=== PATIENT | female | born 1975 | race Caucasian/White ===

== ENCOUNTER 2016-11-18 19:24 | Emergency (ER) | payer MEDICAID, SELFPAY ==
[2016-11-18 19:24] VITALS: BP 159/111; PULSE 100; RESP 19; TEMP 36.6; O2SAT 98; BMI 38.6
--- NOTE | 2016-11-18 19:39 | EKG12_ITS ---
Test Reason : SOB Blood Pressure : / mmHG Vent. Rate : 101 BPM Atrial Rate : 101 BPM P-R Int : 146 ms QRS Dur : 088 ms QT Int : 362 ms P-R-T Axes : 023 031 -17 degrees QTc Int : 469 ms Sinus tachycardia Inferior infarct , age undetermined Abnormal ECG Confirmed by RASHMI LINCOLN, KIM ([id number]), scientific editor JAZZY MINOR ([id number] on 11/22/2016 2:06:04 PM Referred By: RU Confirmed By:KIM CARABALLO MD
--- NOTE | 2016-11-18 19:39 | RAD_ITS ---
STUDY: X-RAY CHEST REASON FOR EXAM: Female, 41 years old. Shortness of breath TECHNIQUE: Frontal and lateral views of the chest. COMPARISON: None. FINDINGS: The lungs are under aerated. There is no focal airspace disease. There is no demonstrated pleural abnormality. Normal size heart. Normal mediastinum and oleg. Normal visualized pulmonary arteries. Normal visualized aortic arch and descending thoracic aorta. There are diffuse degenerative changes of the visualized thoracic spine. Normal visualized ribs, clavicles, and shoulders. There is no demonstrated abnormality of the visualized soft tissue structures of the upper abdomen. RAD/Chest PA and Lateral IMPRESSION: No acute cardiopulmonary abnormalities. Electronically Signed: Mary Conrad MD at 21:10 EDT Tel [phone], Service support ,
--- NOTE | 2016-11-18 19:40 | ED.RN ---
RN CALLED FOR EKG, PULLED OLD EKG'S FOR
[2016-11-18] MEDS: Ipratropium/Albuterol Sulfate 3 ML AMPUL.NEB INHALATION (19:49)
[2016-11-18] MEDS: Albuterol 2.5 MG/3 ML VIAL.NEB. INHALATION ×2 (19:49→20:01)
[2016-11-18 19:50] VITALS: PULSE 115; RESP 19
[2016-11-18 20:02] VITALS: PULSE 110; RESP 18
[2016-11-18 20:09] LABS: Absolute Neutrophil Count 9.6 X10^3/uL (2.0-7.7); Basophil# 0.03 X10^3/uL; Basophil% 0.2 % (0-1); Eosinophil# 0.89 X10^3/uL; Hematocrit 42.6 % (37-47); Hemoglobin 13.5 g/dl (12.0-15.0); Lymphocyte % 24.1 % (19-41); Mean Corp Hgb Conc 31.7 g/gl (32-36); Mean Corpuscular Hgb 25.1 pg (27.0-32.0); Mean Corpuscular Volume 79.2 fL (81-99); Mean Platelet Vol. 9.1 fl (6.2-12.0); Monocyte# 0.77 X10^3/uL; Monocyte% 5.2 % (0-10); Neutrophil % 64.3 % (47-70); Platelet Count 394 K/mm3 (150-450); RBC Distribution Width CV 14.6 % (11.6-14.6); RBC Distribution Width SD 41.3 fl (35.1-43.9); Red Blood Count 5.38 M/mm3 (4.2-5.4); White Blood Count 14.9 K/mm3 (4.4-11.0)
[2016-11-18] MEDS: MethylPREDNISolone 125 MG/2 ML Vial IV (20:09)
[2016-11-18] MEDS: 0.9% Normal Saline 1,000 ML 150 ML IV (20:09)
[2016-11-18 20:14] LABS: POSITIVE COUNT NO; POSITIVE DIFFERENTIAL NO; POSITIVE MORPHOLOGY NO
[2016-11-18 20:52] LABS: Anion Gap 8 (5-15); BUN 15 mg/dL (7-18); BUN/Creat Ratio 16.4 RATIO (10-20); Calcium,Total 8.5 mg/dL (8.5-10.1); Chloride 100 mmol/L (98-107); Creatinine, Serum 0.92 mg/dL (0.55-1.02); EST Glomerular Filtration Rate 71 mL/min (>60); Est Glom Filt Rate - Afr Amer 86 mL/min (>60); Estimated Creatinine Clearance 56.63 ml/min; Glucose 114 mg/dL (70-110); Potassium 3.5 mmol/L (3.5-5.1); Sodium Level 139 mmol/L (136-145)
[2016-11-18 21:04] VITALS: BP 119/70; PULSE 97; RESP 19; O2SAT 95
--- NOTE | 2016-11-18 21:18 | ED.VISSUMM ---
- ER Visit Summary Date of Service: 11/18/16 Chief Complaint: Shortness of breath/cough History of Present Illness: The patient is a 41 F reports shortness of breath and cough for the last 1 month since moving into a new house. Does report there was some mold found in the new house. Patient was seen at urgent care last week. She was given albuterol, prednisone, and a Z-Eloy. Patient states her symptoms did improve for a while, but worsened again over the past 2 days since completing the steroids and antibiotics. She denies any fever. She does report cough with white sputum. She has mild chest tightness and pain into her back, she believes from coughing. Patient has a history of reflux disease, hypertension, high cholesterol, and anxiety. Physical Examination: Blood pressure is 159/111, temperature 97.8, heart rate 100, respiratory rate 19, pulse ox 98% on room air. Patient sitting upright in bed. She is in no acute distress but does have frequent cough. Head neck examination is grossly unremarkable. Heart is regular rate and rhythm. Lung sounds with expiratory wheezes throughout. Abdomen is soft and nontender. Lower external examination was no calf tenderness or edema. Test Results: EKG is sinus at [address] change. This is unchanged compared to prior study of April 2006. CBC was a white count of 14.9 with normal differential. She was recently on steroids. Chemistry studies normal. Troponin is less than 0.02. Two-view chest x-ray shows no acute abnormalities. Emergency Department Course and Treatment: Patient was treated aerosols and IV Solu-Medrol. On repeat evaluations she has increased air movement throughout and feels improved. She will be given a prednisone taper. She will be given a prescription for new albuterol inhaler if she needs it. Treatment Plan: [] Disposition: Discharge Impression: Bronchospasm This note was generated with [employer] dictation software. It may contain incorrect words, spelling, and punctuation that were not noted in review of the chart prior to signing. ED Disposition - Plan for ED Patient: Chief Complaint: Shortness of Breath Referrals: Araseli Trivedi [Primary Care Provider] -
--- NOTE | 2016-11-18 21:22 | ED.DEP ---
ED Disposition - Plan for ED Patient: Disposition: Home or Assisted Living Chief Complaint: Shortness of Breath Instructions: ED Wheezing Prescriptions: Albuterol Inhaler [Ventolin Hfa] 1 - 2 puff INHALATION Q4H PRN PRN #1 inhaler PRN Reason: Wheezing Prednisone 10 mg PO UD #33 tablet Referrals: Araseli Trivedi [Primary Care Provider] - 1 Week
[2016-11-18 21:31] VITALS: BP 125/80; PULSE 93; RESP 17; O2SAT 95
== END 2016-11-18 21:37 | disposition home or self-care (01) ==
PROVIDERS: Emergency Provider Emergency Medicine; Family Provider Nurse Practitioner; PCP Nurse Practitioner
DX: J98.01 Acute bronchospasm (principal); K21.9 Gastro-esophageal reflux disease without esophagitis; I10 Essential (primary) hypertension; E78.00 Pure hypercholesterolemia, unspecified; Z79.51 Long term (current) use of inhaled steroids; Z79.899 Other long term (current) drug therapy
CPT/HCPCS: 71020; 80048; 84484; 85025; 93005; 94640 ×2; 96361; 96374; 99285; J7030; A4216

== ENCOUNTER 2017-05-21 12:57 | Emergency (ER) | payer OTHER, SELFPAY ==
[2017-05-21 12:58] VITALS: BP 159/103; PULSE 52; RESP 16; TEMP 37.5; O2SAT 99; BMI 38.0
--- NOTE | 2017-05-21 13:21 | RAD_ITS ---
STUDY: X-RAY - RIGHT HAND REASON FOR EXAM: Female, 41 years old. Pain. Status post fall. TECHNIQUE: 3 view(s) of the hand. COMPARISON: None. FINDINGS: Normal radiocarpal articulation. Normal distal radioulnar joint. Normal visualized carpal bones. Normal carpal articulations Normal carpometacarpal articulation of the thumb. Normal second through fifth carpometacarpal joints. Normal metacarpi. Normal metacarpophalangeal joint of the thumb. Normal interphalangeal joint of the thumb. Normal proximal and distal phalanges of the thumb. Normal metacarpophalangeal joints of the second through fifth fingers. Normal proximal and distal interphalangeal joints of the second through fifth fingers. Normal phalanges of the second through fifth fingers. The soft tissue structures are unremarkable. RAD/Hand Min 3 Views IMPRESSION: Normal x-ray examination of the hand. Electronically Signed: Rashid Alanis MD at 14:55 EDT Tel , Service support ,
[2017-05-21] MEDS: oxyCODONE 5 MG Tablet PO (14:03)
--- NOTE | 2017-05-21 15:14 | ED.VISSUMM ---
- ER Visit Summary Date of Service: 05/21/17 Chief Complaint: Right hand injury History of Present Illness: The patient is a 41 F who fell going up some steps today injuring her right hand. She denies any other injury from the fall. She is right-hand dominant. Physical Examination: Vital signs are significant for blood pressure 159/103, otherwise unremarkable. Head neck examination is unremarkable. Heart is regular rate and rhythm. Lung sounds are clear. Right upper extremity examination reveals tenderness with edema and mild erythema over the fifth metacarpal of the right hand. She is able to wiggle fingers. She has normal cap refill. There is no tenderness palpation at the wrist or elbow. Test Results: Right hand x-rays are unremarkable. Emergency Department Course and Treatment: Patient was given 1 tab of oxycodone here. She had already taken Tylenol. Patient was placed in an Josue wrap. She is instructed to use Tylenol or ibuprofen at home. Treatment Plan: [] Disposition: Discharge Impression: Mechanical fall with right hand contusion This note was generated with [employer] dictation software. It may contain incorrect words, spelling, and punctuation that were not noted in review of the chart prior to signing ED Disposition - Plan for ED Patient: Disposition: Home or Assisted Living Chief Complaint: Upper Extremity Injury Instructions: ED Contusion Hand Referrals: Rashard Fritz MD [Primary Care Provider] - 1 Week if not improving
[2017-05-21 15:23] VITALS: BP 127/89; PULSE 68; RESP 14; O2SAT 94
== END 2017-05-21 15:24 | disposition home or self-care (01) ==
PROVIDERS: Emergency Provider Emergency Medicine; Family Provider Family Medicine; PCP Family Medicine
DX: S60.221A Contusion of right hand, initial encounter (principal); I10 Essential (primary) hypertension; E78.00 Pure hypercholesterolemia, unspecified; F41.9 Anxiety disorder, unspecified; Z79.51 Long term (current) use of inhaled steroids; Z79.899 Other long term (current) drug therapy; W10.9XXA Fall (on) (from) unspecified stairs and steps, initial encounter; Y93.01 Activity, walking, marching and hiking; Y92.89 Other specified places as the place of occurrence of the external cause; Y99.8 Other external cause status
CPT/HCPCS: 73130; 99283

== ENCOUNTER 2017-09-02 22:01 | Emergency (ER) | payer OTHER, SELFPAY ==
[2017-09-02 22:02] VITALS: BP 155/95; PULSE 77; RESP 16; TEMP 37.3; O2SAT 97; BMI 24.4
[2017-09-02 22:10] VITALS: BP 148/70; PULSE 80; RESP 14; O2SAT 98
--- NOTE | 2017-09-02 22:28 | RAD_ITS ---
STUDY: X-RAY - RIGHT ANKLE REASON FOR EXAM: Female, 42 years old. Injury and pain TECHNIQUE: Three view(s) of the ankle were obtained. COMPARISON: None. FINDINGS: Bones: There are no acute osseous abnormalities. There is a moderate spur off the inferior calcaneus. There is a small spur off the superior talus. Joints: There are moderate degenerative changes at the first TMT joint. Soft tissues: There is moderate soft tissue swelling, laterally more than medially. RAD/Ankle min 3 Views IMPRESSION: No acute fractures are seen. Electronically Signed: Mary Conrad MD at 23:07 EDT Tel Direct: [phone], Service support ,
[2017-09-02] MEDS: oxyCODONE 5 MG Tablet 10 MG PO (22:54)
[2017-09-02] MEDS: Ondansetron ODT 4 MG Tablet PO (22:55)
--- NOTE | 2017-09-02 23:16 | ED.VISSUMM ---
- ER Visit Summary Date of Service: 09/02/17 Chief Complaint: Right ankle pain History of Present Illness: The patient is a [address] Fritz. She reports that yesterday she was jumping around and she either twisted or landed on her right ankle wrong. She states I might have rolled it. She reports that she has had increased pain today. She reports it is an aching constant pain and 7 out of 10 severity. It is sharp pain is 10 out of 10 with walking. She taken ibuprofen without relief. She does report she has paresthesias in her toes. She reports that she did not fall. She has no other injuries or complaints. Physical Examination: Vitals: Stable. Afebrile. General: Well-nourished and well-developed. Head: Normocephalic atraumatic. Neck: Supple, no lymphadenopathy. No JVD. Nontender. Cardiovascular: Regular rate and rhythm. No murmurs. Respiratory: No respiratory distress. Clear to auscultation bilaterally. Abdominal: Soft, nontender, nondistended, normal bowel sounds. No guarding, rebound, or peritoneal signs. Back: Nontender. Extremities: Soft tissue swelling and moderate tenderness palpation both the medial lateral malleoli. Her Achilles tendon is intact. She has a normal Sánchez test. She has less than 2 second capillary refill distal to this. Skin: Normal color, no rash. Neurologic: Alert and oriented ?3. Cranial nerves II through XII are intact. Normal strength and sensation. Psych: Normal affect. Test Results: X-ray shows soft tissue swelling but no fracture. Emergency Department Course and Treatment: Patient was treated with Zofran and oxycodone. She is placed in a walking boot. Treatment Plan: Patient be discharged instructions follow-up Dr. Alas in 1 week if not improving. She will be placed on Percocet and naproxen for pain. Disposition: To home in improved and stable condition. Impression: 1. Right ankle sprain. This note was generated with [employer] dictation software. It may contain incorrect words, spelling, and punctuation that were not noted in review of the chart prior to signing ED Disposition - Plan for ED Patient: Disposition: Home or Assisted Living Chief Complaint: Lower Extremity Injury Instructions: ED Sprain Ankle W X Ray Prescriptions: Oxycodone HCl/Acetaminophen [Percocet 5/325] 1 tablet PO Q6H PRN PRN 3 Days #12 tablet PRN Reason: Pain Naproxen [Naprosyn] 500 mg PO BID #14 tablet Referrals: Malachi Alas DPM [STAFF PHYSICIAN] - 1 Week if not improving
== END 2017-09-02 23:47 | disposition home or self-care (01) ==
PROVIDERS: Emergency Provider Emergency Medicine; Family Provider Family Medicine; PCP Family Medicine
DX: S93.401A Sprain of unspecified ligament of right ankle, initial encounter (principal); X50.0XXA Overexertion from strenuous movement or load, initial encounter; Y93.39 Activity, other involving climbing, rappelling and jumping off; Y92.89 Other specified places as the place of occurrence of the external cause; Y99.8 Other external cause status
CPT/HCPCS: 73610; 99283

== ENCOUNTER → 2017-12-16 16:12 | Outpatient (CLI) | payer OTHER, SELFPAY ==
--- NOTE | 2017-12-16 16:45 | MRI_ITS ---
STUDY: MRI RIGHT ANKLE WITHOUT CONTRAST REASON FOR EXAM: Female, 42 years old. Osteoarthritis. Pain. Instability. TECHNIQUE: Standardized fat and water weighted pulse sequences were obtained in all 3 orthogonal planes. COMPARISON: X-ray September 02, 2017. FINDINGS: Normal subcutis adipose space. Normal posterior tibialis tendon. There is accessory navicular Incorporated into the distal posterior tibial tendon. Normal flexor digitorum longus tendon. Normal flexor hallucis longus tendon. Normal peroneus longus and brevis tendons. Normal tibialis anterior tendon. Normal extensor hallucis longus tendon. Normal extensor digitorum longus tendons. There is tendinosis with enthesopathic changes of the teno-osseous insertion of the Achilles tendon, without a tendon tear. Normal plantar fascia. There is a plantar calcaneal spur, but without cancellous marrow edema. Normal intrinsic muscles of the rearfoot. Normal distal tibiofibular syndesmotic ligamentous complex. Normal lateral ligamentous complex. Normal subtalar ligaments and sinus tarsi. Normal deltoid ligamentous complexes. Normal plantar calcaneonavicular (spring) ligament. Normal tibiotalar articulation. Normal talar dome. Normal subtalar articulations. Normal talonavicular articulation. Normal calcaneocuboid articulation. Normal navicular-cuneiform articulations. Arthritic change of the intercuneiform and tarsometatarsal articulations. MRI/Lower Ext Joint Only (Routine) IMPRESSION: No fracture. No osteochondral injury of the talar dome. Heel spurs. Arthritic changes of the foot. Electronically Signed: eJffrey Boland MD at 9:52 EDT , Service support ,
== END ==
PROVIDERS: Family Provider Family Medicine; PCP Family Medicine; Referring Provider Podiatrist; Visit Provider Podiatrist
DX: M19.071 Primary osteoarthritis, right ankle and foot (principal); S93.401A Sprain of unspecified ligament of right ankle, initial encounter; M25.371 Other instability, right ankle
CPT/HCPCS: 73721

== ENCOUNTER 2018-02-03 07:00 | Outpatient (RCR) | payer OTHER, SELFPAY ==
--- NOTE | 2018-01-03 15:50 | HP.PTEVAL_ITS ---
Patient's Visit Information RACHEL CAPUTO is a 42 year old F referred to Physical Therapy by Malachi Alas with a diagnosis of Achilles Tendonitis, Peroneal Tendonitis, oa hindfoot/midfoot. Date of Evaluation: 01/03/18 Physical Therapist: Danni Rivera - Visit Plan Frequency: 2x /Week Duration: 4 Weeks Plan: Focus on eccentrics and flexibility with functional mobility- Ultrasound as modality of choice - Subjective Subjective: Back in August insidious onset she was in the ER due to swelling in the right ankle- was in a boot for several months- hurt worse in the boot so she took it off. Sprained ankle with MRI showed tendonitis- therapy, orthotics and special ankle brace. 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 Agg: going up stairs, jumping, runni ng. Worst: 8/10 Pain is located on the lateral aspect of the right foot- had 2 cortisone injections about a week ago- has not changed her pain. Best: 4/10 Eases: Advil, Ice and elevation. Describes the pain as dull and achy- will become sharp/shooting if she tries to push it. 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 No problems with the left foot but does report always rolling ankles. Not currently wearing orthitcs just an insert from the store. Has not gotten the molds done for her orthotics or ankle brace. Feels the ankle is staying the same. Sleep: not disturbed- sleeps in all positions. PMhx: HTN, cholesterol. Meds: metroprolol, trovastsin, losartin. - Objective Posture: Fh, rS. Gait: slightly antalgic with decreased stance on the right LE- supination on the right>left. HR/TR: able without pain. Eccentric HR: able with discomfort. Balance:5 sec SLS then LOB- reports pain. Girth: Malls: 26 cm Figure 8:50 cm Mets: 21cm. ROM: DF: neutral, PF: 60 degrees, Ever: 30 degrees Inv: 40 degrees with pain. Strength: 4+/5 throughout ankle. Palpation: significantly tender throughout achilles tendon and lateral malleolus. Flex: Gastroc: moderate, Solues: mild - Goals Goal 1:: Patient will be I with HEP and progression Goal Time Frame: 4-6 Weeks Goal 2:: Patient will ambulate >300 feet with a normalized gait pattern Goal Time Frame: 4-6 Weeks Goal 3:: Patient will demo 10 degrees of DF Goal Time Frame: 4-6 Weeks Goal 4:: Patient iwll SLS for 30 sec without LOB and 0/10 pain Goal Time Frame: 4-6 Weeks - Rehabilitation Potential Physical Therapy Diagnosis: Patient presents with hypomobility- she has decreased ROM, strength and muscular endurance leading to abnormal gait and increased pain with ADL's. Rehabilitation Potential: Fair - Anticipated Interventions Patient/Client Instruction: Educate patient on: Benefits of Fitness Program Therapeutic Exercise to Include: Strength training, Balance training, Body mechanics, Postural training, Flexibilty training, Gait and locomotor training, Dynamic Lumbar Stabilization For the Purpose of:: To improve muscle performance and motor function TENS: Yes Cryotherapy (ice pack, ice massage): Yes Thermo therapy (hot pack): Yes Ultrasound (thermal/non thermal): Yes Thank you for the opportunity to evaluate your patient. For Medicare and Medicare HMO plans, please review the plan of care and approve it. It will need to be FAXED BACK to us at [phone] for Medicare purposes. Please let me know if there are questions or concerns regarding this plan of care. Physician Signature: Date:
--- NOTE | 2018-02-03 07:42 | HP.PTDCSUM ---
HP - PT D/C Summary It has been my pleasure to treat RACHEL CAPUTO under orders from Malachi Alas, for the diagnosis of Achilles Tendonitis, Peroneal Tendonitis, oa hindfoot/midfoot for a total of 9 visit(s). Discharge Date: Please see the following information for a summary of their discharge status. - Subjective Subjective: Patient reports that running is still mostly the main issue. Doing a lot of stairs is uncomfortable after she does them numerous times. They are better just got her brace and is weaning into wearing it. - Pain R foot Pain Intensity (Out of 10): 2 - Overall Improvement % Improvement: 75 - Objective Objective/Function: Posture: FH, RS- can correct with VC's but does not maintain Gait: no deviation noted in walking speed. HR/TR: able without pain. Eccentric HR: able without discomfort. Balance: 30 sec without LOB but does have mild increase in muscle activation- reports feeling unstable ROM: DF: 10, PF: 60 degrees, Ever: 30 degrees Inv: 40 degrees with pain. Strength: 5/5 throughout ankle. Palpation: significantly tender throughout achilles tendon and lateral malleolus. Flex: Gastroc: moderate, Solues: mild - Goals Goal 1:: Patient will be I with HEP and progression Goal Progress: Goal Met Goal 2:: Patient will ambulate >300 feet with a normalized gait pattern Goal Progress: Goal Met Goal 3:: Patient will demo 10 degrees of DF Goal Progress: Goal Met Goal 4:: Patient iwll SLS for 30 sec without LOB and 0/10 pain Goal Progress: Goal Met - Plan Plan: Discharge to [facility] and continued weaning into the ankle brace. - D/C Information If there are questions or concerns regarding this patient's physical therapy, please feel free to call me at [phone]. Thank you for the referral of this patient. Sincerely, Danni Rivera
== END 2018-02-03 08:48 | disposition home or self-care (01) ==
LOC: PT 07:00
PROVIDERS: Family Provider Family Medicine; PCP Family Medicine; Referring Provider Podiatrist; Visit Provider Podiatrist
DX: M76.61 Achilles tendinitis, right leg (principal); M76.71 Peroneal tendinitis, right leg; M19.071 Primary osteoarthritis, right ankle and foot
CPT/HCPCS: 97035; 97110; 97161; 97164

== ENCOUNTER → 2018-04-27 16:53 | Outpatient (CLI) | payer OTHER, SELFPAY ==
--- NOTE | 2018-04-27 16:55 | CT_ITS ---
STUDY: CT MAXILLOFACIAL SINUSES REASON FOR EXAM: Female, 42 years old. Chronic sinusitis RADIATION DOSAGE (If Supplied By Facility): CTDIvol = ( 33.06 ) mGy, DLP = ( 742.94 ) mGycm TECHNIQUE: The patient was scanned in a multi detector CT scanner. High resolution axial imaging was performed without the administration of intravenous contrast material. Sagittal and coronal images were reconstructed. Individualized dose optimization techniques were used for this CT. COMPARISON: None. FINDINGS: FRONTAL SINUSES: Normal aeration, without mucosal inflammatory disease. ETHMOIDAL SINUSES: Normal aeration, without mucosal inflammatory disease. MAXILLARY SINUSES: Bilateral maxillary sinus cysts. SPHENOIDAL SINUSES: Normal aeration, without mucosal inflammatory disease. There is patency of the bilateral maxillary infundibuli with normal uncinate processes, ethmoid bullae, and hiatus semilunaris. Normal bilateral middle turbinates. There is a questionable mass projecting from the posterior aspect of the left inferior turbinate versus turbinate hypertrophy. This extends into the nasopharynx and narrows the nasopharynx by up to 40% as seen on image 70 of series 4. The lesion in question measures 19 x 17 mm on that image. If not already obtained, endoscopic evaluation is recommended. Normal midline nasal septum. There is patency of the bilateral nasal airways. The visualized osseous structures are normal. The visualized bilateral orbital contents are normal. CT/Sinus/Facial Bone IMPRESSION: Left inferior turbinate hypertrophy versus posterior turbinate mass with associated significant narrowing of the nasopharynx. Endoscopic correlation is recommended. No evidence of acute or chronic paranasal sinusitis. Electronically Signed: Rashard Perez MD at 23:35 EST Tel , Service support ,
== END ==
PROVIDERS: Family Provider Family Medicine; PCP Family Medicine; Referring Provider Otolaryngology Otolaryngology/Facial Plastic Surgery; Visit Provider Otolaryngology Otolaryngology/Facial Plastic Surgery
DX: J32.9 Chronic sinusitis, unspecified (principal)
CPT/HCPCS: 70486

== ENCOUNTER 2019-01-24 03:38 | Emergency (ER) | payer MEDICAID, SELFPAY ==
[2019-01-24 03:39] VITALS: BP 164/104; PULSE 84; RESP 14; TEMP 36.6; O2SAT 98; BMI 38.2
[2019-01-24 03:45] VITALS: O2SAT 98
--- NOTE | 2019-01-24 03:57 | RAD_ITS ---
STUDY: X-RAY CHEST REASON FOR EXAM: Female, 43 years old. Short of breath TECHNIQUE: PA and lateral chest COMPARISON: 12/10/2016. FINDINGS: The lungs are clear and expanded. There is no demonstrated pleural abnormality. Normal size heart. Normal mediastinum and oleg. Normal visualized pulmonary arteries. Normal visualized aortic arch and descending thoracic aorta. There is stable mild kyphosis of the thoracic spine with osteophyte formation.. Normal visualized ribs, clavicles, and shoulders. There is stable mild eventration of the right hemidiaphragm. There is no demonstrated abnormality of the visualized soft tissue structures of the upper abdomen. RAD/Chest PA and Lateral IMPRESSION: No acute cardiopulmonary process Stable degenerative changes thoracic spine Stable eventration right hemidiaphragm Electronically Signed: Ben Aguilar, at 5:29 EST Tel , Service support ,
--- NOTE | 2019-01-24 03:57 | EKG12_ITS ---
Test Reason : CP Blood Pressure : / mmHG Vent. Rate : 076 BPM Atrial Rate : 076 BPM P-R Int : 140 ms QRS Dur : 088 ms QT Int : 410 ms P-R-T Axes : 013 -03 002 degrees QTc Int : 461 ms Normal sinus rhythm Lateral infarct , age undetermined Inferior infarct , age undetermined Abnormal ECG Confirmed by LOREN BERNAL ([id number]), film or videotape editor JAZZY MINOR ([id number]) on 01/28/2019 9:07:01 AM Referred By: DENISE Confirmed By:LOREN BERNAL
--- NOTE | 2019-01-24 03:58 | ED.VISSUMM ---
- ER Visit Summary Date of Service: 01/24/19 Chief Complaint: Chest pain History of Present Illness: The patient is a 43 F who states that since yesterday she has had a constant chest discomfort that intermittently sharp. She points to her lower chest in the midline stating that it goes directly into her back. It is worse with movement of her arms and deep breathing. It is worse with touch. No fevers. No cough. She denies any vomiting or nausea. No abdominal symptoms. She states that she is treated for asthma but is not sure if this is an asthma attack. Physical Examination: Afebrile vital signs are stable Gen: Well-nourished well-developed Head: Normocephalic atraumatic Eyes: Perrl EOMI ENT: TMs clear no rhinorrhea moist mucous membranes Neck: Supple no lymphadenopathy no JVD nontender CVS: Regular rate rhythm no murmurs normal S1-S2 Respiratory: No distress clear to auscultation bilaterally rest is tender to palpation in the midline. Abdomen: Soft nontender nondistended normal bowel sounds no masses Back: Nontender Extremity: Nontender no edema Skin: Normal color no rash Neuro: alert orientated ?3 CN II-XII intact normal strength sensation reflexes gait cerebellar Psych: Appears anxious Test Results: EKG demonstrates a sinus rhythm at a rate of 76 without concerning features of ACS. It is unchanged from November 2016. White count slightly elevated at 14. Troponin is negative. (This represents greater than 8-hour troponin of constant symptoms) d-dimer elevated 0.80. CTA of the chest negative for PE or for dissection Emergency Department Course and Treatment: Patient received a dose of Toradol. As I can reproduce her pain I think this is most likely costochondritis. She will be discharged home with instructions for anti-inflammatories and follow-up with her doctor if not improving return if worsening Impression: 1. Acute chest pain This note was generated with [employer] dictation software. It may contain incorrect words, spelling, and punctuation that were not noted in review of the chart prior to signing ED Disposition - Plan for ED Patient: Disposition: Home or Assisted Living Instructions: CHEST WALL PAIN, Costochondritis Referrals: Rashard Fritz MD [Primary Care Provider] - 3-5 Days if not improving
[2019-01-24 04:03] LABS: Absolute Lymphocyte Count 4.15 X10^3/uL (0.83-4.51); Absolute Neutrophil Count 8.3 X10^3/uL (2.0-7.7); Basophil# 0.06 X10^3/uL; Basophil% 0.4 % (0-1); Eosinophil# 0.56 X10^3/uL; Hematocrit 39.7 % (37-47); Hemoglobin 12.3 g/dL (12.0-15.0); Lymphocyte # 4.15 X10^3/ul (4.0); Lymphocyte % 29.5 % (19-41); Mean Corpuscular Hgb 23.7 pg (27.0-32.0); Mean Corpuscular Volume 76.3 fL (81-99); Mean Platelet Vol. 9.1 fl (6.2-12.0); Monocyte# 0.96 X10^3/uL; Monocyte% 6.8 % (0-10); NRBC Flagged by Analyzer 0 % (0-5); Neutrophil # 8.29 X10^3/uL (2.7-7.7); Neutrophil % 58.9 % (47-70); Platelet Count 475 K/mm3 (150-450); RBC Distribution Width CV 15.1 % (11.6-14.6); RBC Distribution Width SD 41.3 fl (35.1-43.9); White Blood Count 14.1 K/mm3 (4.4-11.0)
[2019-01-24 04:16] LABS: Anion Gap 7 (5-15); BUN 16 mg/dL (7-18); BUN/Creat Ratio 17.3 RATIO (10-20); Calcium,Total 8.7 mg/dL (8.5-10.1); Chloride 102 mmol/L (98-107); Creatinine, Serum 0.93 mg/dL (0.55-1.02); EST Glomerular Filtration Rate 69 mL/min (>60); Est Glom Filt Rate - Afr Amer 84 mL/min (>60); Estimated Creatinine Clearance 54.87 ml/min; Glucose 111 mg/dL (74-106); Potassium 3.4 mmol/L (3.5-5.1); Sodium Level 140 mmol/L (136-145)
--- NOTE | 2019-01-24 04:19 | CT_ITS ---
STUDY: CTA CHEST REASON FOR EXAM: Female, 43 years old. Shortness of breath x1 day with sternal chest pain and upper back pain RADIATION DOSAGE (If Supplied By Facility): CTDIvol = ( 13.66 ) mGy, DLP = ( 483.30 ) mGycm TECHNIQUE: The examination was performed with the intravenous administration of IV 100mL Isovue-370. Post-processing of the angiographic images was performed, with multiplanar reformation and 3D reconstruction. Individualized dose optimization techniques were used for this CT. COMPARISON: Chest x-ray PA and lateral 01/24/2019. FINDINGS: Normal enhancement of the main pulmonary artery and right and left pulmonary arteries. Normal enhancement of the bilateral peripheral pulmonary arteries. There is no demonstrated pulmonary embolism. Normal thoracic aorta and visualized great vessels. There is no demonstrated aortic dissection. Normal heart and pericardium. Normal mediastinum. Normal hilar regions. Normal visualized trachea and bronchi. The lungs are well expanded. 2 millimeter calcified nodule superior segment left lower lobe consistent with a granuloma. Normal pleura. Normal chest wall structures. Age-appropriate osseous structures. 0.5 cm low attenuation in the hepatic dome is too small to characterize. Liver appears enlarged and low attenuated, it is however incompletely imaged. CT/CTA Chest W/WO Contrast IMPRESSION: No demonstrated pulmonary embolism or arterial dissection. No pulmonary edema, congestive heart failure or confluent pneumonia. Low-attenuation change in the hepatic dome is too small to characterize, statistically most common small cyst or hemangioma patient's age group. Electronically Signed: Brittany Rowe MD at 5:12 EST , Service support ,
[2019-01-24] MEDS: Ketorolac 15 MG/ML Vial IV (05:05)
[2019-01-24 05:26] VITALS: BP 127/93; PULSE 72; RESP 15; O2SAT 93
[2019-01-24 05:30] VITALS: BP 127/93; PULSE 72; RESP 15; O2SAT 95
== END 2019-01-24 05:31 | disposition home or self-care (01) ==
PROVIDERS: Emergency Provider Emergency Medicine; Family Provider Family Medicine; PCP Family Medicine
DX: R07.9 Chest pain, unspecified (principal); J45.909 Unspecified asthma, uncomplicated; K21.9 Gastro-esophageal reflux disease without esophagitis; I10 Essential (primary) hypertension; Z79.51 Long term (current) use of inhaled steroids; Z79.899 Other long term (current) drug therapy
CPT/HCPCS: 71046; 71275; 80048; 84484; 85025; 85379; 93005; 96374; 99284; Q9967; A4216

== ENCOUNTER 2019-01-29 15:26 | Emergency (ER) | payer MEDICAID, SELFPAY ==
[2019-01-29 15:27] VITALS: BP 182/110; PULSE 76; RESP 15; TEMP 36.7; O2SAT 100; BMI 36.3
[2019-01-29 15:37] VITALS: BP 197/110; PULSE 80; RESP 18; O2SAT 99
--- NOTE | 2019-01-29 15:37 | ED.VISSUMM ---
- ER Visit Summary Date of Service: 01/29/19 Chief Complaint: Allergic reaction History of Present Illness: The patient is a [address] Fritz. She reports that she took indomethacin approximately 130. An hour later she began feeling like her tongue was swelling, her nose was numb, and she had shallow breathing. She denies any rash. States this is similar to the reaction she had when she took Levaquin. Patient reports that she has paresthesias to her nose and tongue. She denies any other paresthesias or weakness. She denies any chest pain. She does report she is been nauseated at times during this. However, she has not vomited. Physical Examination: Vitals: Stable. Afebrile. General: Well-nourished and well-developed. Head: Normocephalic atraumatic. HEENT: Mild angioedema of her lips and tongue. Pharynx is spared. Neck: Supple, no lymphadenopathy. No JVD. Nontender. Cardiovascular: Regular rate and rhythm. No murmurs. Respiratory: No respiratory distress. Clear to auscultation bilaterally. Abdominal: Soft, nontender, nondistended, normal bowel sounds. No guarding, rebound, or peritoneal signs. Back: Nontender. Extremities: Nontender, no edema. Skin: Normal color, no rash. Neurologic: Alert and oriented ?3. Cranial nerves II through XII are intact. Normal strength and sensation. Psych: Normal affect. Emergency Department Course and Treatment: Patient had an IV placed. She had stable vital signs initially and was not given epinephrine. She was given Benadryl, Pepcid, and Solu-Medrol IV. She is been observed over the course of 2 hours and is greatly improved. She is resting comfortably. Treatment Plan: Patient will be discharged with Zyrtec, Pepcid, and prednisone. Instructed to follow-up with her primary care physician in 1 to 2 days if not improving. Return to the emergency department for any worsening symptoms. Disposition: To home in improved and stable condition. Impression: 1. Allergic reaction to indomethacin. This note was generated with [employer] software. It may contain incorrect words, spelling, and punctuation that were not noted in review of the chart prior to signing ED Disposition - Plan for ED Patient: Instructions: ALLERGIC REACTION, Drug Prescriptions: Prednisone [Deltasone] 60 mg PO DAILY #15 tablet Famotidine [Pepcid] 20 mg PO BID #28 tablet Cetirizine HCl [Zyrtec] 10 mg PO DAILY #14 capsule Referrals: Rashard Fritz MD [Primary Care Provider] - 1-2 Days if not improving
[2019-01-29] MEDS: 0.9% Normal Saline 1,000 ML 999 ML IV (15:41)
[2019-01-29] MEDS: MethylPREDNISolone 125 MG/2 ML Vial IV (15:42)
[2019-01-29] MEDS: DiphenhydrAMINE 50 MG/ML Syringe IV (15:42)
[2019-01-29] MEDS: Famotidine 200 MG/20 ML MDV 20 MG in 0.9% Normal Saline (Pres. free 8 ML 300 MG IV (15:45)
[2019-01-29 16:47] VITALS: BP 136/81; PULSE 64; RESP 17; O2SAT 99
[2019-01-29 17:03] VITALS: BP 136/81; PULSE 66; RESP 16; O2SAT 100
== END 2019-01-29 17:03 | disposition home or self-care (01) ==
LOC: ED 15:46
PROVIDERS: Emergency Provider Emergency Medicine; Family Provider Family Medicine; PCP Family Medicine
DX: R20.2 Paresthesia of skin (principal); T39.395A Adverse effect of other nonsteroidal anti-inflammatory drugs [NSAID], initial encounter; J45.909 Unspecified asthma, uncomplicated; I10 Essential (primary) hypertension; E78.00 Pure hypercholesterolemia, unspecified; Z79.51 Long term (current) use of inhaled steroids; Z79.899 Other long term (current) drug therapy
CPT/HCPCS: 96365; 96375; 99285; J7030; A4216; J3490

== ENCOUNTER 2019-04-18 12:58 | Emergency (ER) | payer OTHER, SELFPAY ==
[2019-04-18 12:59] VITALS: BP 148/69; PULSE 69; RESP 16; TEMP 36.4; O2SAT 97; BMI 37.5
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
[2019-04-18] MEDS: Diphth,Pertuss(Acell),Tet Vac 0.5 ML Vial IM (15:13)
[2019-04-18 15:15] VITALS: RESP 18
== END 2019-04-18 15:36 | disposition home or self-care (01) ==
PROVIDERS: Emergency Provider Emergency Medicine; PCP Family Medicine
DX: S00.511A Abrasion of lip, initial encounter (principal); Y00.XXXA Assault by blunt object, initial encounter; Y93.89 Activity, other specified; Y92.219 Unspecified school as the place of occurrence of the external cause; Y99.0 Civilian activity done for income or pay
CPT/HCPCS: 90471; 90715; 99282

== ENCOUNTER → 2019-05-09 | Outpatient (CLI) | payer OTHER, MEDICAID, SELFPAY ==
[2019-04-18 12:59] VITALS: BMI 37.5
== END | disposition home or self-care (01) ==
LOC: LABSPEC 15:31
PROVIDERS: PCP Family Medicine; Referring Provider Otolaryngology; Visit Provider Otolaryngology
DX: R05 Cough (principal)
CPT/HCPCS: 87633; 87804

== ENCOUNTER 2020-01-03 16:26 | Emergency (ER) | payer OTHER, SELFPAY ==
[2020-01-03 16:27] VITALS: BP 154/99; PULSE 64; RESP 18; TEMP 36.3; O2SAT 96; BMI 34.0
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
--- NOTE | 2020-01-03 17:02 | ED.RN ---
called rukhsana [facility] of [facility], [facility] do not require a drug screen for this pt.
== END 2020-01-03 18:18 | disposition home or self-care (01) ==
LOC: ED 17:09
PROVIDERS: Emergency Provider Emergency Medicine; PCP Family Medicine
DX: S60.212A Contusion of left wrist, initial encounter (principal); W23.0XXA Caught, crushed, jammed, or pinched between moving objects, initial encounter; Y93.89 Activity, other specified; Y92.89 Other specified places as the place of occurrence of the external cause; Y99.0 Civilian activity done for income or pay
CPT/HCPCS: 73110; 73130; 99283

== ENCOUNTER → 2020-04-23 | Outpatient (CLI) | payer OTHER, SELFPAY ==
--- NOTE | 2020-04-23 13:00 | CYST_PTH ---
PATIENT: RACHEL CAPUTO LOC: [facility] U#:[id number] AGE/SX: 44/F ROOM: RE04/23/[address]: Dr. Ben Mendoza MD : 1975 BED: DIS: 04/23/2020 SPEC #: [id number] RECD: 04/23/20 16:51 STATUS: LEIGH ANN JOSEPH #: [id number] MARION: 04/23/20 13:[address]: Ben Mendoza DEPT: SURGICAL PATHOLOGY RECD BY: Christi Zamora ENTERED: 04/24/20 08:06 SP TYPE: Cyst OTHR DR: Dr. Rashard Fritz MD Tissues: CYST Procedures: Surgery Specimen Level III HEADER OPERATION: Excision sebaceous cyst chest PRE-OP DIAGNOSIS: Sebaceous cyst chest TISSUE SUBMITTED: Sebaceous cyst chest MICROSCOPIC DIAGNOSIS Sebaceous cyst chest, excision: Epidermal inclusion cyst with focal chronic inflammation and foreign body giant cell reaction. SJ:fannie 04/25/2020 MICROSCOPIC DESCRIPTION Slides are reviewed. GROSS DESCRIPTION Received in fixative is one container labeled with the patient's name and designated chest sebaceous cyst. The specimen consists of a piece of skin with underlying tissue. The skin piece measures 1 x 0.5 cm. The underlying tissue measures 1 x 1 x 0.5 cm. The specimen is inked, bisected and submitted entirely in one cassette. / SJ:fannie 04/24/2020 TC:5 [facility]: [id number]
== END | disposition home or self-care (01) ==
LOC: LABSPEC 16:56
PROVIDERS: PCP Family Medicine; Referring Provider Surgery; Visit Provider Surgery
DX: L72.3 Sebaceous cyst (principal)
CPT/HCPCS: 88304

== ENCOUNTER 2021-03-13 15:46 | Outpatient (CLI) | payer OTHER, MEDICAID, SELFPAY ==
[2021-03-13 16:03] VITALS: BP 153/89; PULSE 76; RESP 16; TEMP 36.6; O2SAT 99; BMI 34.0
[2021-03-13] MEDS: 0.9% Saline Lock 10 ML Syringe IV (16:11)
[2021-03-13 16:41] VITALS: BP 118/76; PULSE 64; RESP 16; TEMP 36.8; O2SAT 98
[2021-03-13 17:33] VITALS: BP 119/82; PULSE 66; RESP 16; TEMP 36.6; O2SAT 98
== END 2021-03-13 23:59 | disposition home or self-care (01) ==
LOC: MS3OUT 15:46 → MS3 15:47
PROVIDERS: PCP Family Medicine; Referring Provider Nurse Practitioner Adult Health; Visit Provider Nurse Practitioner Adult Health
DX: U07.1 COVID-19 (principal)
CPT/HCPCS: J7050; M0245; Q0245; A4216

== ENCOUNTER → 2021-08-21 | Outpatient (CLI) | payer OTHER, MEDICAID, SELFPAY | END | disposition home or self-care (01) | LOC: PAT 09-17 13:26 | PROVIDERS: PCP Family Medicine; Visit Provider Obstetrics & Gynecology | DX: Z01.810 Encounter for preprocedural cardiovascular examination (principal) | CPT/HCPCS: 93005; J2405 ==

== ENCOUNTER → 2023-03-31 | Outpatient (CLI) | payer OTHER, SELFPAY | END | disposition home or self-care (01) | LOC: LABSPEC 17:00 | PROVIDERS: PCP Family Medicine; Referring Provider Otolaryngology Otolaryngology/Facial Plastic Surgery; Visit Provider Otolaryngology Otolaryngology/Facial Plastic Surgery | DX: J32.9 Chronic sinusitis, unspecified (principal) | CPT/HCPCS: 87070; 87077; 87205 ==

== ENCOUNTER 2023-06-11 20:18 | Emergency (ER) | payer OTHER, SELFPAY ==
[2023-06-11 20:18] VITALS: BP 144/98; PULSE 71; RESP 18; TEMP 36.6; O2SAT 96
[2023-06-11 20:20] VITALS: BP 144/98; PULSE 71; RESP 16; TEMP 36.6; O2SAT 96; BMI 39.6
--- NOTE | 2023-06-11 21:01 | EKG12_ITS ---
Test Reason : CP Blood Pressure : / mmHG Vent. Rate : 069 BPM Atrial Rate : 069 BPM P-R Int : 156 ms QRS Dur : 088 ms QT Int : 402 ms P-R-T Axes : 004 018 008 degrees QTc Int : 430 ms Normal sinus rhythm Inferior infarct (cited on or before 18-NOV-2016) Abnormal ECG Confirmed by Rogelio Neumann ([id number]), associate editor RON OROZCO ([id number]) on 06/13/2023 9:52:39 AM Referred By: Confirmed By:Rogelio Neumann
[2023-06-11] MEDS: Aspirin 81 MG TAB.CHEW 324 MG PO (21:04)
--- NOTE | 2023-06-11 21:05 | RAD_ITS ---
INDICATION: chest pain EXAMINATION/TECHNIQUE: X-RAY - XR Chest 1 View COMPARISON: No relevant prior comparison studies available. FINDINGS: LINES/DEVICES: None. LUNGS: Mild asymmetric elevation right hemidiaphragm. Lung volumes are within normal limits. No airspace opacity or abnormal interstitial pattern. No nodule or mass. No pleural effusion or pneumothorax. MEDIASTINUM AND CARDIOVASCULAR STRUCTURES: Normal size and contour of the cardiomediastinal silhouette. No evidence of pulmonary vascular congestion. BONES AND SOFT TISSUES: No fracture or focal osseous lesion. RAD/Chest 1 View (Portable) IMPRESSION: 1. Mild asymmetric elevation right hemidiaphragm. Lung volumes are within normal limits. Electronically Signed: Rogelio Grace DO at 21:19 EDT ,
[2023-06-11 21:13] LABS: Absolute Lymphocyte Count 3.34 X10^3/uL (0.83-4.51); Absolute Neutrophil Count 6.6 X10^3/uL (2.0-7.7); Basophil# 0.04 X10^3/uL; Basophil% 0.4 % (0-1); Eosinophil# 0.56 X10^3/uL; Eosinophils% 4.9 % (0-5); Hematocrit 42.9 % (37-47); Hemoglobin 13.9 g/dL (12.0-15.0); Lymphocyte # 3.34 X10^3/ul (0.83-4.51); Lymphocyte % 29.5 % (19-41); Mean Corp Hgb Conc 32.4 g/dL (32-36); Mean Corpuscular Hgb 27.3 pg (27.0-32.0); Mean Corpuscular Volume 84.3 fL (81-99); Mean Platelet Vol. 9.3 fl (6.2-12.0); Monocyte# 0.71 X10^3/uL; Monocyte% 6.3 % (0-10); NRBC Flagged by Analyzer 0 % (0-5); Neutrophil # 6.64 X10^3/uL (2.7-7.7); Neutrophil % 58.5 % (47-70); Platelet Count 312 K/mm3 (150-450); RBC Distribution Width SD 43.3 fl (35.1-43.9); Red Blood Count 5.09 M/mm3 (4.2-5.4); White Blood Count 11.3 K/mm3 (4.4-11.0)
[2023-06-11 21:30] VITALS: BP 124/84; PULSE 60; RESP 13; O2SAT 97
[2023-06-11 21:33] LABS: Anion Gap 7 (5-15); BUN 12 mg/dL (7-18); BUN/Creat Ratio 14.8 RATIO (10-20); Calcium,Total 8.4 mg/dL (8.5-10.1); Chloride 105 mmol/L (98-107); Creatinine, Serum 0.81 mg/dL (0.55-1.02); EST Glomerular Filtration Rate 79 mL/min (>60); Est Glom Filt Rate - Afr Amer 96 mL/min (>60); Estimated Creatinine Clearance 85.07 ml/min; Glucose 187 mg/dL (74-106); Potassium 3.4 mmol/L (3.5-5.1); Sodium Level 138 mmol/L (136-145); Troponin-I HS (w/2H Reflex) 4 pg/mL (3.0-54.0)
[2023-06-11 21:34] LABS: BNP,B-Type NATRIURETIC PEPTIDE 28.4 pg/mL (0-100)
[2023-06-11 21:40] LABS: D-Dimer Quantitative (DVT/PE) 0.71 FEU/ug/m (0.27-0.49)
--- NOTE | 2023-06-11 21:47 | CT_ITS ---
STUDY: CTA CHEST REASON FOR EXAM: Female, 47 years old. pulmonary embolism RADIATION DOSAGE (If Supplied By Facility): CTDIvol = ( 23.13 ) mGy, DLP = ( 684.88 ) mGycm TECHNIQUE: The examination was performed with the intravenous administration of IV 100mL Isovue-370. Post-processing of the angiographic images was performed, with multiplanar reformation and 3D reconstruction. Individualized dose optimization techniques were used for this CT. COMPARISON: None. FINDINGS: Adequate density of contrast in the pulmonary arteries and no significant motion; diagnostic exam. No pulmonary artery filling defect to suggest pulmonary embolism. There is no evidence of right heart strain. Normal size heart. No pericardial fluid. No mediastinal or hilar lymphadenopathy. No mass or filling defect. No bronchiectasis. No peribronchial thickening. Normal lung volumes without airtrapping. No airspace opacity or abnormal interstitial pattern. No nodule or mass. No pleural effusion or pneumothorax. Thyroid gland and base of the neck are within normal limits. No axillary lymphadenopathy. No fracture or focal osseous lesion. Visualized solid and hollow viscus organs are within normal limits of the exam. CT/CTA Chest W/WO Contrast IMPRESSION: Normal CTA chest examination, without a demonstrated pulmonary embolism or other acute cardiopulmonary disease. Electronically Signed: Rogelio Grace DO at 23:01 EDT ,
--- NOTE | 2023-06-11 22:16 | ED.VIS.CHEST ---
HPI History of Present Illness Chief Complaint: Chest Pain Informant: patient Narrative Narrative: 47-year-old female presenting to the emergency room chief complaint of chest pain and shortness of breath. Patient states she was seen in outside hospital recently for similar symptoms had a negative workup other than inverted T waves. She states that she has had some shortness of breath over the past couple days seem to worsen today and now has an associated sharp pain in the chest going into her back on the left. She reports a history of anxiety GERD and asthma. She states her inhaler is not helping. She lives in [place], [place]. No reported fevers. No leg swelling. [facility] Medical History Alcohol use Anemia Anxiety Anxiety Arthritis Asthma Cardiac murmur Chest pain COVID Diabetes Fatty liver GERD (gastroesophageal reflux disease) History of edema History of stress test Hypertension Infected sebaceous cyst Keloid Migraine headache Non-smoker Wears partial dentures Home Medications atorvastatin 20 mg tablet 40 mg PO DAILY 11/18/16 [History Last Taken Unknown] metoprolol tartrate 25 mg tablet 25 mg PO BID 11/18/16 [History Last Taken Unknown] escitalopram oxalate 10 mg tablet 10 mg PO DAILY 03/10/20 [History Last Taken Unknown] ipratropium bromide 17 mcg/actuation HFA aerosol inhaler 2 puff inhalation PRN PRN SOB 03/10/20 [History Last Taken Unknown] losartan 100 mg-hydrochlorothiazide 12.5 mg tablet 1 tab PO DAILY 03/10/20 [History Last Taken Unknown] potassium chloride 10 mEq tablet,extended release 10 meq PO BID 03/10/20 [History Last Taken Unknown] ferrous sulfate 325 mg (65 mg iron) capsule,extended release 325 mg PO BID 08/14/21 [History Last Taken Unknown] Allergy/AdvReac Type Severity Reaction Status Date / Time levofloxacin [From Levaquin] Allergy Severe throat Verified 06/11/23 20:19 closing Latex, Natural Rubber Allergy Mild rash Verified 06/11/23 20:19 doxycycline Allergy Anaphylaxis Verified 06/11/23 20:19 indomethacin Allergy Swelling Verified 06/11/23 20:19 Family History Mother Hypertension Grandfather Heart disease Myocardial infarction Surgical History History of nasal surgery History of partial hysterectomy History of tonsillectomy Social History Smoking Status: Never smoker alcohol intake: never ROS ROS ED Constitutional Constitutional ED: Denies chills, fever(s) or weight loss Eyes Eyes: Denies change in vision or diplopia ENT ENT ED: Denies ear pain, rhinorrhea or sore throat Cardiovascular Cardiovascular: Reports chest pain; Denies orthopnea, palpitations or racing heartbeat Respiratory/Chest Respiratory/Chest: Reports dyspnea and dyspnea on exertion; Denies cough or orthopnea Gastrointestinal Gastrointestinal: Denies abdominal pain, diarrhea, nausea or vomiting Genitourinary Genitourinary ED: Denies dysuria, hematuria or urinary frequency Musculoskeletal Musculoskeletal: Denies arthralgias or myalgias Integumentary Denies abscess or rash Neurologic Neurologic: Denies headache(s) or weakness Psychiatric Psychiatric: Denies anxiety, depression, suicidal ideation or suicidal thoughts Endocrine Endocrinology: Denies polydipsia, polyphagia or polyuria Allergic/Immunologic Allergic/Immunologic ED: Denies mouth swelling, tongue swelling or urticaria EXAM Physical Exam Const Vital Signs: 06/11/23 20:20 06/11/23 20:18 06/11/23 20:40 Temperature 97.8 F 97.8 F Temperature Source Temporal Temporal Pulse Rate 71 71 Respiratory Rate 16 18 Respiratory Effort Normal Respiratory Pattern Normal Blood Pressure 144/98 H 144/98 H Blood Pressure Mean 113 113 Pulse Ox 96 96 Oxygen Delivery Method Room Air Room Air 06/11/23 21:30 06/11/23 22:45 06/12/23 00:00 Temperature Temperature Source Pulse Rate 60 63 71 Respiratory Rate 13 13 17 Respiratory Effort Respiratory Pattern Blood Pressure 124/84 H 120/84 H 132/82 H Blood Pressure Mean 95 97 98 Pulse Ox 97 97 98 Oxygen Delivery Method Room Air 06/12/23 00:04 Temperature 97.6 F L Temperature Source Pulse Rate 70 Respiratory Rate 17 Respiratory Effort Respiratory Pattern Blood Pressure 132/82 H Blood Pressure Mean 98 Pulse Ox 98 Oxygen Delivery Method Positive well nourished and well developed General Appearance ED: well developed HEENT Reports normocephalic, head/scalp atraumatic and moist mucous membranes Eyes PERRL and EOMs intact bilaterally Neck no lymphadenopathy, supple and no JVD Resp normal respiratory effort and clear to auscultation bilaterally Cardio regular rate, regular rhythm and no murmurs GI normal to inspection, nondistended, normoactive bowel sounds and non-tender Palpation: soft Back/Spine no CVA tenderness and normal ROM Extremity normal to inspection General Extremety ED: Negative for edema General Extremity: Negative for edema Neuro oriented x3 and CN's II-XII intact bilaterally Sensorium / Orientation: alert Motor Exam: strength 5/5 throughout Psych mental status grossly normal Mood & Affect: Negative for depressed or tearful Skin no rashes or lesions noted and no wounds MDM MDM MDM Narrative Medical decision making narrative: EKG is a normal sinus rhythm with a ventricular to 69 bpm. I do not see definitive features of ACS. 2 sets of cardiac enzymes are normal. White count 11.3 D-dimer is elevated 0.71 does not age corrected. CTA of the chest is not demonstrate pulmonary embolism pleural effusion aortic dissection or obvious pericardial effusion. Patient's vital signs have been stable. She is 95% on room air. Her lung sounds are clear. I do not have a definitive answer for the patient tonight. Recommend follow-up with primary care if not improving. Return if worsening or concerns History & Record Review Discussion w/independent historian: Patient Lab Data Attestation: I reviewed the patient's lab results. Labs: Laboratory Results - last 24 hr 06/11/23 06/11/23 20:35 22:39 WBC 11.3 H RBC 5.09 Hgb 13.9 Hct 42.9 MCV 84.3 MCH 27.3 MCHC 32.4 RDW Std Deviation 43.3 RDW Coeff of Sylwia 14.0 Plt Count 312 MPV 9.3 Immature Gran % (Auto) 0.400 Neut % (Auto) 58.5 Lymph % (Auto) 29.5 Mcculloch % (Auto) 6.3 Eos % (Auto) 4.9 Baso % (Auto) 0.4 Absolute Neuts (auto) 6.6 Absolute Lymphs (auto) 3.34 Nucleated RBC % 0 D-Dimer Quant (PE/DVT) 0.71 H* Sodium 138 Potassium 3.4 L Chloride 105 Carbon Dioxide 26.0 Anion Gap 7 BUN 12 Creatinine 0.81 Estim Creat Clear Calc 85.07 Est GFR (MDRD) Af Amer 96 Est GFR (MDRD) Non-Af 79 BUN/Creatinine Ratio 14.8 Glucose 187 H Calcium 8.4 L Troponin I High Sens 4 5 B-Natriuretic Peptide 28.4 Radiography Diagnostic Testing: Clinical Impression(s) from Imaging Studies Chest X-Ray 06/11/23 21:05 IMPRESSION: 1. Mild asymmetric elevation right hemidiaphragm. Lung volumes are within normal limits. Electronically Signed: Rogelio Grace DO at 21:19 EDT , Chest CTA 06/11/23 21:47 IMPRESSION: Normal CTA chest examination, without a demonstrated pulmonary embolism or other acute cardiopulmonary disease. Electronically Signed: Rogelio Grace DO at 23:01 EDT , EKG Initial EKG: Attestation: I personally reviewed and interpreted this EKG as follows: Comments: Normal sinus rhythm ventricular rate of 69 bpm. Discharge Plan Triage Chief Complaint: Chest Pain ED Provider: Skyler Romero Dx/Rx/DC Orders Clinical Impression: Acute dyspnea, Chest pain Prescriptions: No Action ipratropium bromide 17 mcg/actuation HFA aerosol inhaler 2 puff INHALATION PRN PRN (Reason: SOB) Patient Comments: INHALE 2 PUFFS BY MOUTH EVERY 6 HOURS escitalopram oxalate 10 mg tablet 10 mg PO DAILY Patient Comments: TAKE 1 TABLET BY MOUTH ONCE DAILY losartan-hydrochlorothiazide 100-12.5 mg tablet 1 tab PO DAILY Patient Comments: TAKE 1 TABLET BY MOUTH ONCE DAILY potassium chloride 10 mEq tablet extended release 10 meq PO BID atorvastatin 20 MG tablet 40 mg PO DAILY metoprolol tartrate 25 MG tablet 25 mg PO BID ferrous sulfate 325 mg (65 mg iron) Capsule, Extended Release 325 mg PO BID Primary Care Provider: Rashard Fritz Referrals: Rashard Fritz MD [Primary Care Provider] - 3-5 Days if not improving Disposition Disposition: Home, Self Care Discharge Date/Time: 06/12/23 00:07
[2023-06-11 22:45] VITALS: BP 120/84; PULSE 63; RESP 13; O2SAT 97
[2023-06-11 23:10] LABS: Reflex Troponin-HS? (from REC) Y
[2023-06-11 23:34] LABS: Troponin-I HS 5 pg/mL (3.0-54.0)
[2023-06-12] VITALS: BP 132/82; PULSE 71; RESP 17; O2SAT 98
[2023-06-12 00:04] VITALS: BP 132/82; PULSE 70; RESP 17; TEMP 36.4; O2SAT 98
== END 2023-06-12 00:07 | disposition home or self-care (01) ==
PROVIDERS: Emergency Provider Emergency Medicine; PCP Family Medicine; Visit Provider Emergency Medicine
DX: R06.09 Other forms of dyspnea (principal); E11.9 Type 2 diabetes mellitus without complications; R07.9 Chest pain, unspecified; J45.909 Unspecified asthma, uncomplicated; F41.9 Anxiety disorder, unspecified; K21.9 Gastro-esophageal reflux disease without esophagitis
CPT/HCPCS: 71045; 71275; 80048; 83880; 84484; 85025; 85379; 93005; 99284; Q9967; A4216